=== PATIENT | female | born 1985 | race Caucasian/White ===

== ENCOUNTER 2020-05-26 19:28 | Emergency (ER) | payer SELFPAY ==
[~2020-05-26] VITALS: Ht 170.2 cm; Wt 52.2 kg
[2020-05-26 21:27] LABS: BASOPHILS ABSOLUTE AUTO 0.07 K/mm3 (0.00-0.23); BASOPHILS PERCENT AUTO 1 % (0-2); EOSINOPHILS ABSOLUTE AUTO 0.14 K/mm3 (0.00-0.68); EOSINOPHILS PERCENT AUTO 2 % (0-6); Hematocrit 37.7 % (33.0-51.0); Hemoglobin 12.6 g/dL (11.5-16.0); IMMATURE GRAN ABSOLUTE AUTO 0.02 K/mm3 (0.00-0.10); IMMATURE GRAN PERCENT AUTO 0 % (0-1); LYMPHOCYTES ABSOLUTE AUTO 1.93 K/mm3 (0.84-5.20); LYMPHOCYTES PERCENT AUTO 24 % (21-46); MONOCYTES ABSOLUTE AUTO 0.67 K/mm3 (0.16-1.47); MONOCYTES PERCENT AUTO 8 % (4-13); Mean Corpuscular HGB 31.8 pg (26.0-34.0); Mean Corpuscular HGB Conc 33.4 g/dL (31.5-36.5); Mean Corpuscular Volume 95 fL (80-100); Mean Platelet Volume 11.5 fL (9.1-12.4); NEUTROPHILS PERCENT AUTO 65 % (41-73); Platelet Count 222 K/mm3 (150-400); RDW Standard Deviation 42.4 fL (35.1-46.3); Red Blood Cell Count 3.96 M/mm3 (3.80-5.20); White Blood Cell Count 8.03 K/mm3 (4.00-11.30)
[2020-05-26 21:40] LABS: U Amphetamine Screen DETECTED; U Barbituate Screen Not Detected; U Benzodiazapine Screen Not Detected; U Buprenorphine Screen Not Detected; U Cannabinoids Screen DETECTED; U Cocaine Screen Not Detected; U Methadone Screen Not Detected; U Methamphetamine Screen DETECTED; U Opiates Screen Not Detected; U Oxycodone Screen Not Detected; U Phencyclidine Screen Not Detected; U Propoxyphene Screen Not Detected
[2020-05-26 21:48] LABS: Alanine Aminotransfer (ALT/SGP 30 U/L (12-78); Albumin, Blood 3.6 g/dL (3.4-5.0); Albumin/Globulin Ratio 1.1 (0.8-1.8); Alk Phos 55 U/L (50-136); Anion Gap 6 mmol/L (6-16); Aspartate Aminotrans (AST/SGOT 25 U/L (12-37); Bilirubin, Total 0.8 mg/dL (0.1-1.0); Blood Urea Nitrogen 19 mg/dL (8-24); Bun/Creatinine Ratio 22.5 (12.0-20.0); CO2, Blood 26 mmol/L (21-32); Calcium, Blood 8.8 mg/dL (8.5-10.1); Chloride, Blood 108 mmol/L (98-108); Creatinine, Blood 0.85 mg/dL (0.40-1.00); Ethanol (Alcohol), Blood, Med <3 mg/dL; Globulin, Blood 3.2 g/dL (2.2-4.0); Glomerular Filtration Rate >60 (60-); Glucose, Blood 109 mg/dL (70-99); Potassium, Blood 3.3 mmol/L (3.5-5.5); Salicylate 3.8 mg/dL (2.8-20.0); Sodium, Blood 140 mmol/L (136-145); Thyroxine (T4) 11.4 ug/dL (4.8-13.9); Total Protein, Blood 6.8 g/dL (6.4-8.2)
[2020-05-26 21:50] LABS: Acetaminophen, Random <2.0 ug/mL (10.0-30.0)
== END 2020-05-26 22:36 | disposition home or self-care (01) ==
LOC: ER 19:28
PROVIDERS: Emergency Medicine
DX: F15.10 Other stimulant abuse, uncomplicated (principal); R41.82 Altered mental status, unspecified
CPT/HCPCS: 80053; 81025; 84436; 84443; 85025; 93005; 93010; 99285-25; G0480

== ENCOUNTER 2021-05-10 13:53 | Inpatient (IN) | payer OTHER ==
[~2021-05-10] VITALS: Ht 175.3 cm; Wt 59.0 kg
[2021-05-10 14:51] LABS: Hematocrit 33.7 % (33.0-51.0); Hemoglobin 11.3 g/dL (11.5-16.0); Mean Corpuscular HGB 30.3 pg (26.0-34.0); Mean Corpuscular HGB Conc 33.5 g/dL (31.5-36.5); Mean Corpuscular Volume 90 fL (80-100); Mean Platelet Volume 11.5 fL (9.1-12.4); Platelet Count 297 K/mm3 (150-400); RDW Coefficient Variation 12.7 % (11.7-14.2); RDW Standard Deviation 41.5 fL (35.1-46.3); Red Blood Cell Count 3.73 M/mm3 (3.80-5.20)
[2021-05-10 14:53] LABS: White Blood Cell Count 15.87 K/mm3 (4.00-11.30)
[2021-05-10 15:13] LABS: BASOPHILS PERCENT MAN 0 % (0-2); EOSINOPHILS PERCENT MAN 0 % (0-6); LYMPHOCYTES ABSOLUTE MAN 0.95 K/mm3 (0.84-5.20); LYMPHOCYTES PERCENT MAN 6 % (21-46); MONOCYTES ABSOLUTE MAN 0.63 K/mm3 (0.16-1.47); MONOCYTES PERCENT MAN 4 % (4-13); NEUTROPHILS ABSOLUTE MAN 14.28 K/mm3 (1.96-9.15); SEG NEUTROPHILS PERCENT MAN 90 % (41-73); TOTAL CELLS COUNTED 100
[2021-05-10 15:48] LABS: SARS-Cov-2 (COVID-19) PCR, MMC NEGATIVE (NEGATIVE)
[2021-05-10 17:00] LABS: U Amphetamine Screen DETECTED; U Barbituate Screen Not Detected; U Benzodiazapine Screen Not Detected; U Buprenorphine Screen Not Detected; U Cannabinoids Screen DETECTED; U Cocaine Screen Not Detected; U Methadone Screen Not Detected; U Methamphetamine Screen DETECTED; U Opiates Screen Not Detected; U Oxycodone Screen Not Detected; U Phencyclidine Screen Not Detected; U Propoxyphene Screen Not Detected
[2021-05-10 17:49] LABS: PCO2 Cord - Venous 37.3 mmHg (40-50); PO2 Cord - Venous 25.1 mmHg (28-32); pH Umbilical Cord - Venous 7.34 (7.26-7.35)
--- NOTE | 2021-05-10 19:19 | NUR ---
[place] [employer] [place]. she does not have a phone, and no contacts. Pt states she has been in denial about this the whole time and just realized that she had a belly last month. and that she has not had her period since she slept with the dad of this baby. Pt states that she did not seek care because she was in denial this whole time and that she was "in a different era than she was with her first baby 9 years ago." Pt states that her son that is 9 years old lives with the dad and is either in [place] or local she isnt sure. This baby's dad is different and she states that she thinks that He is aware of the but is not positive. 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 Pt states that it is not hard for her to say no and be off of the meth even though she used it today and yesterday. pt states that she is aware of resources such as [facility] & [facility] and is happy about this baby and she believes that it will bring good to her life and help her get clean. Pt states that she has been depressed about a lot of things lately but is excited about her daughter.
--- NOTE | 2021-05-11 08:29 | NUR ---
UP TO SHOWER THIS AM. NOTED INCREASED SWELLING IN L LABIA. PT REPORTS LOTS OF PAIN ON L SIDE. DIFFICULT TO ASSESS, APPROXIMATION WITH STITCHES. ICE DIAPER PLACED WITH COMPRESSION FROM LARGE PAD AND UNDERWEAR. NOTED PT DID NOT ASK ABOUT HER BABY TODAY. VANESA HANDLEY HERE AND AWARE.
--- NOTE | 2021-05-11 08:30 | NUR ---
ICE APPLIED TO PERINEUM AFTER SHOWER, LEFT LABIA DECREASED SWELLING SIGNIFICANTLY. LOOKING MUCH BETTER THAN IT DID THIS MORNING WITH SHOWER. ENCOURAGED PT TO KEEP ICE ON WITH PAD CHANGES AND KEEP DIRECT WEIGHT OFF PERINEUM. PT LAYING ON SIDE. PT STATE SHE WILL LET US KNOW IF SWELLING INCREASES OR PAIN INCREASES.
[2021-05-11 09:50] LABS: BASOPHILS ABSOLUTE AUTO 0.05 K/mm3 (0.00-0.23); BASOPHILS PERCENT AUTO 0 % (0-2); EOSINOPHILS ABSOLUTE AUTO 0.09 K/mm3 (0.00-0.68); EOSINOPHILS PERCENT AUTO 1 % (0-6); Hematocrit 27.4 % (33.0-51.0); Hemoglobin 9.1 g/dL (11.5-16.0); IMMATURE GRAN ABSOLUTE AUTO 0.16 K/mm3 (0.00-0.10); IMMATURE GRAN PERCENT AUTO 1 % (0-1); LYMPHOCYTES ABSOLUTE AUTO 2.24 K/mm3 (0.84-5.20); LYMPHOCYTES PERCENT AUTO 15 % (21-46); MONOCYTES PERCENT AUTO 7 % (4-13); Mean Corpuscular HGB 30.1 pg (26.0-34.0); Mean Corpuscular HGB Conc 33.2 g/dL (31.5-36.5); Mean Corpuscular Volume 91 fL (80-100); Mean Platelet Volume 12.6 fL (9.1-12.4); NEUTROPHILS ABSOLUTE AUTO 10.96 K/mm3 (1.96-9.15); NEUTROPHILS PERCENT AUTO 76 % (41-73); Platelet Count 253 K/mm3 (150-400); RDW Coefficient Variation 12.8 % (11.7-14.2); RDW Standard Deviation 42.1 fL (35.1-46.3); Red Blood Cell Count 3.02 M/mm3 (3.80-5.20)
--- NOTE | 2021-05-11 10:11 | NUR ---
PT BEING VERY COMPLIANT AND HONEST WITH CPS.
--- NOTE | 2021-05-11 10:15 | NUR ---
WITH CPS PT STATES THAT SHE HAS NOTHING TO CARE FOR THIS BABY.
--- NOTE | 2021-05-11 11:17 | NUR ---
PT'S DAUGHTER WAS BROUGHT INTO HER ROOM TO EVALUATE HER PARENTING AND APPROPRIATE SAFETY WITH THE BABY. PT HELD THE BABY FOR A FEW MINUTES AND STARTED TO FALL ASLEEP WHILE HOLDING HER AND WAS MAKING TONGUE MOVEMENTS THAT PROTRUDED OUTSIDE HER MOUTH. SHE WAS REMINDED THAT WHEN SHE STARTS TO FEEL TIRED, SHE NEEDS TO PUT THE BABY IN THE CRIB AND THAT SHE SHOULD NOT FALL ASLEEP WITH THE BABY. SHIRA MUSA PUT BABY IN THE CRIB FOR HER.
--- NOTE | 2021-05-11 11:42 | NUR ---
back to desk with nursing staff per Heidy request. Heidy asked if we could take her back so she could sleep all she could. I told her that we needed to be able to see how she was able to parent this child so we could see if baby girl would be safe and cared for when she was with Heidy's supervision. Heidy still wanted this baby out with the staff after explaining why we wanted to see her parenting skills and would call when she wanted her back. she states that this is all crazy and shes still in somewhat of denial about it.
--- NOTE | 2021-05-11 12:56 | NUR ---
pt fast asleep after eating lunch. remains at desk being cared for by nursing staff
--- NOTE | 2021-05-11 15:10 | NUR ---
taken to room, mother notified she needs to eat at 4:30. asleep in crib 20 minutes after taken to room, mother did not pick her up and turned the lights off and has been asleep since.
--- NOTE | 2021-05-11 15:31 | NUR ---
Kath't into patient room at 1520 baby was laying in crib mom was standing next to crib beside the bed. I asked if i could get her anything patient stated ice diaper please
--- NOTE | 2021-05-11 16:07 | NUR ---
Kath't and check on patient at 1600 mom was sleepin in bed and baby was sleeping in crib with lights out
--- NOTE | 2021-05-11 17:00 | NUR ---
milind woke up and fed appropriately burped her and changed her diaper without being prompted.
--- NOTE | 2021-05-11 19:09 | NUR ---
late entry for 0700 today. This patient has slept all night, having to be awakened get up and empty bladder. Refused to shower tonight. When getting back to bed around 0100, pt asked "how's it doing'? Informed her that her daughter was in the nursery and doing well. At this she rolled over on her side and went back to sleep. Never asked if she could go and see her, Whe did not awaken during taking of VS or fundal massage.
--- NOTE | 2021-05-12 06:55 | NUR ---
ASSUMMED CARE OF BABY AND MOM THIS MORNING AT 0350. MOM WAS WOKEN AT 0430 TO FEED BABY. MOM CHECKED DIAPER AND GAVE BOTTLE. PT WAS APPROPRIATE WITH CARE. ROUNDED ON MOM AND BABY AND BOTH SLEEPING. BABY IN CRIB.
--- NOTE | 2021-05-12 07:35 | NUR ---
PATIENT STATES BABY WAS FUSSY AT 0700 ASK HER IF SHE FED BABY AND SHE SAID NO, NURSE STATED BABY IS HUNGRY AND NEEDS TO BE FED, PATIENT FED BABY AND APPEARED LOVINGAND APPROPRIATE
[2021-05-12 08:09] LABS: HBSAG SCREEN Negative (Negative)
[2021-05-12 08:09] LABS: HIV SCREEN 4TH GENERATION WRFX Non Reactive (Non Reactive)
--- NOTE | 2021-05-12 17:19 | NUR ---
d/c home with [facility]
[2021-05-13 05:10] LABS: CHLAMYDIA TRACHOMATIS, NAA Negative (Negative)
[2021-05-13 19:06] LABS: HCV LOG10 5.617 (.); HEPATITIS C QUANTITATION 414000 IU/mL (.)
== END 2021-05-12 17:32 | disposition home or self-care (01) | DRG 806 ==
LOC: ER 13:53 → BC 14:09 → ER 14:09 → BC 19:26
PROVIDERS: Advanced Practice Midwife; Specialist; ADMIT Family Medicine
PROC: 10E0XZZ Delivery of Products of Conception, External Approach (ICD-10-PCS; principal; 2021-05-10)
PROC: 0UQMXZZ Repair Vulva, External Approach (ICD-10-PCS; 2021-05-10)
DX: O42.02 Full-term premature rupture of membranes, onset of labor within 24 hours of rupture (principal); O99.324 Drug use complicating childbirth; Z37.0 Single live birth; Z3A.00 Weeks of gestation of pregnancy not specified; Z20.822 Contact with and (suspected) exposure to COVID-19; O73.0 Retained placenta without hemorrhage; O70.0 First degree perineal laceration during delivery; Z28.21 Immunization not carried out because of patient refusal; F12.10 Cannabis abuse, uncomplicated; O34.211 Maternal care for low transverse scar from previous cesarean delivery; F15.10 Other stimulant abuse, uncomplicated; Z59.00 Homelessness unspecified
CPT/HCPCS: 36415; 82803; 85025; 86317; 86592; 86762; 86850; 86900; 86901; 87340; 87389; 87491; 87522; 87591; 99284; A9270; J0290; J0690; J1885; J2060; J2210; J3010; J7120; U0004

== ENCOUNTER 2021-06-02 09:12 | Emergency (ER) | payer OTHER ==
[~2021-06-02] VITALS: Ht 175.3 cm; Wt 61.2 kg
[2021-06-02] MEDS ORDERED: Diflucan150 MG PO (09:31)
== END 2021-06-02 09:33 | disposition home or self-care (01) ==
LOC: ER 09:12
DX: B37.3 Candidiasis of vulva and vagina (principal); Z79.899 Other long term (current) drug therapy
CPT/HCPCS: 99282

== ENCOUNTER 2021-06-08 16:57 | Emergency (ER) | payer OTHER ==
[~2021-06-08] VITALS: Ht 172.7 cm; Wt 59.9 kg
[~2021-06-08 16:57] MED LIST: Diflucan150 MG PO
[2021-06-08 18:49] LABS: Source, Urine Clean Catch
[2021-06-08 18:56] LABS: Appearance, Urine Clear (Clear); Bilirubin, Urine Neg (Neg); Blood, Urine 2+ (Neg); Glucose Qualitative, Urine Neg (Neg); Ketones, Urine Neg (Neg); Leukocyte Esterase, Urine 3+ (Neg); Nitrite, Urine Neg (Neg); Protein, Urine Neg (Neg); Urobilinogen, Urine NORM (Normal)
[2021-06-08 19:05] LABS: Color, Urine Pale Yellow (P-Yellow)
[2021-06-08 19:06] LABS: White Blood Cells, Urine 50-100 /hpf (0-5)
[2021-06-08 19:07] LABS: Bacteria Many /hpf; Squamous Epithelial Cells Mod /hpf (Few)
[2021-06-08] MEDS ORDERED: SULTRIDS PO (20:17)
[2021-06-11 03:11] LABS: CHLAMYDIA TRACHOMATIS, NAA Negative (Negative)
== END 2021-06-08 20:55 | disposition home or self-care (01) ==
LOC: ER 16:57
PROVIDERS: Physician Assistant; Student in an Organized Health Care Education/Training Program
DX: O86.19 Other infection of genital tract following delivery (principal); O98.33 Other infections with a predominantly sexual mode of transmission complicating the puerperium; A59.01 Trichomonal vulvovaginitis; A59.09 Other urogenital trichomoniasis
CPT/HCPCS: 81001; 81025; 87086; 87491; 87591; 96372; 99284-25; A9270; J0696

== ENCOUNTER 2022-03-14 07:29 | Emergency (ER) | payer OTHER ==
[~2022-03-14] VITALS: Ht 172.7 cm; Wt 55.3 kg
[~2022-03-14 07:29] MED LIST changes: +SULTRIDS PO
[2022-03-14 08:33] LABS: Source, Urine Clean Catch
[2022-03-14 08:42] LABS: Blood, Urine 4+ (Neg); Glucose Qualitative, Urine Neg (Neg); Ketones, Urine 1+ (Neg); Leukocyte Esterase, Urine 1+ (Neg); Nitrite, Urine Pos (Neg); Protein, Urine 2+ (Neg); Specific Gravity, Urine 1.025 (1.003-1.022); Urobilinogen, Urine 2+ (Normal)
[2022-03-14] MEDS ORDERED: CEPH500 PO (08:45)
[2022-03-14 09:03] LABS: Bilirubin, Urine 2+ (Neg)
[2022-03-14 09:04] LABS: Appearance, Urine Cloudy (Clear); Color, Urine Amber (P-Yellow)
[2022-03-14 09:06] LABS: Amorphous Heavy (0-Heavy); Red Blood Cells, Urine 0-2 /hpf (0-2); Squamous Epithelial Cells Rare /hpf (Few); White Blood Cells, Urine 0-2 /hpf (0-5)
[2022-03-14 09:07] LABS: Bacteria Mod /hpf
== END 2022-03-14 09:10 | disposition home or self-care (01) ==
LOC: ER 07:29
PROVIDERS: Physician Assistant
DX: N39.0 Urinary tract infection, site not specified (principal); F17.210 Nicotine dependence, cigarettes, uncomplicated
CPT/HCPCS: 81001; 81025; 87077; 87086; 87186; J0696

== ENCOUNTER 2022-07-30 11:52 | Emergency (ER) | payer OTHER ==
[~2022-07-30] VITALS: Ht 172.7 cm; Wt 62.6 kg
[~2022-07-30 11:52] MED LIST changes: +CEPH500 PO
[2022-07-30] MEDS ORDERED: FLUC150A PO (12:49)
== END 2022-07-30 12:51 | disposition home or self-care (01) ==
LOC: ER 11:52
DX: B37.31 Acute candidiasis of vulva and vagina (principal); F17.210 Nicotine dependence, cigarettes, uncomplicated; Z79.899 Other long term (current) drug therapy
CPT/HCPCS: 99282

== ENCOUNTER → 2022-08-18 | Outpatient (CLI) | payer OTHER ==
[~2022-08-18] MED LIST changes: +FLUC150A PO
[2022-08-19 11:50] LABS: Candida species (DNA Probe) Negative (NEGATIVE); G. vaginalis (DNA Probe) Negative (NEGATIVE); T. vaginalis (DNA Probe) Positive (NEGATIVE)
[2022-08-20 05:10] LABS: CHLAMYDIA TRACHOMATIS, NAA Negative (Negative)
== END ==
LOC: LAB SHORT 15:20 → LAB 15:20
PROVIDERS: Physician Assistant Surgical
DX: N76.0 Acute vaginitis (principal)
CPT/HCPCS: 87480; 87491; 87510; 87591; 87660

== ENCOUNTER 2023-02-21 20:18 | Emergency (ER) | payer OTHER ==
[~2023-02-21] VITALS: Ht 172.7 cm; Wt 58.1 kg
[~2023-02-21 20:18] MED LIST changes: +Bactrim Ds Tab1 EACH PO; +Valtrex1000 MG PO
[2023-02-21 20:30] VITALS: BP 117/79
[2023-02-21 20:52] LABS: Source, Urine Clean Catch
[2023-02-21 20:54] LABS: Blood, Urine 5+ (Neg); Glucose Qualitative, Urine Neg (Neg); Ketones, Urine 1+ (Neg); Leukocyte Esterase, Urine 2+ (Neg); Nitrite, Urine Pos (Neg); Protein, Urine 2+ (Neg); Specific Gravity, Urine 1.025 (1.003-1.022); Urobilinogen, Urine 1+ (Normal)
[2023-02-21 21:01] LABS: Appearance, Urine Hazy (Clear); Bilirubin, Urine 1+ (Neg); Color, Urine Amber (P-Yellow)
[2023-02-21 21:03] LABS: Amorphous Light (0-Heavy); Bacteria Many /hpf; Mucus Mod (0-Heavy); Red Blood Cells, Urine 50-100 /hpf (0-2); Squamous Epithelial Cells Few /hpf (Few)
[2023-02-21] MEDS ORDERED: NITR100CA PO (21:49)
[2023-02-21 22:08] LABS: Candida species (DNA Probe) Negative (NEGATIVE); G. vaginalis (DNA Probe) Positive (NEGATIVE); T. vaginalis (DNA Probe) Negative (NEGATIVE)
== END 2023-02-21 22:01 | disposition home or self-care (01) ==
LOC: ER 20:18
PROVIDERS: Student in an Organized Health Care Education/Training Program
DX: N39.0 Urinary tract infection, site not specified (principal); N89.8 Other specified noninflammatory disorders of vagina; F17.210 Nicotine dependence, cigarettes, uncomplicated; F15.11 Other stimulant abuse, in remission
CPT/HCPCS: 81001; 87077; 87086; 87186; 87480; 87510; 87660; 99283; A9270

== ENCOUNTER 2023-03-26 17:26 | Emergency (ER) | payer OTHER ==
[~2023-03-26] VITALS: Ht 175.3 cm; Wt 55.3 kg
[~2023-03-26 17:26] MED LIST changes: +NITR100CA PO
[2023-03-26 17:37] VITALS: BP 128/82
== END 2023-03-26 19:17 | disposition home or self-care (01) ==
LOC: ER 17:26
DX: B35.1 Tinea unguium (principal); F17.210 Nicotine dependence, cigarettes, uncomplicated; W22.8XXA Striking against or struck by other objects, initial encounter
CPT/HCPCS: 73660; 99283-25

== ENCOUNTER 2023-04-03 20:23 | Emergency (ER) | payer OTHER ==
[~2023-04-03] VITALS: Ht 172.7 cm; Wt 56.0 kg
[2023-04-03 20:48] VITALS: BP 159/98
[2023-04-03] MEDS ORDERED: CEPH500 PO (20:57)
== END 2023-04-03 21:05 | disposition home or self-care (01) ==
LOC: ER 20:23
DX: S91.102A Unspecified open wound of left great toe without damage to nail, initial encounter (principal); L08.9 Local infection of the skin and subcutaneous tissue, unspecified; F17.210 Nicotine dependence, cigarettes, uncomplicated; X08.8XXA Exposure to other specified smoke, fire and flames, initial encounter
CPT/HCPCS: 99283

== ENCOUNTER → 2023-04-05 | Outpatient (CLI) | payer OTHER ==
[2023-04-06 14:09] LABS: Candida species (DNA Probe) Negative (NEGATIVE); G. vaginalis (DNA Probe) Positive (NEGATIVE); T. vaginalis (DNA Probe) Negative (NEGATIVE)
== END ==
LOC: LAB SHORT 16:15 → LAB 16:15
PROVIDERS: Nurse Practitioner
DX: R82.90 Unspecified abnormal findings in urine (principal); N89.8 Other specified noninflammatory disorders of vagina; L02.511 Cutaneous abscess of right hand
CPT/HCPCS: 87070; 87075; 87077; 87086; 87147; 87186; 87205; 87480; 87510; 87660

== ENCOUNTER 2024-05-29 09:59 | Emergency (ER) | payer OTHER ==
[~2024-05-29] VITALS: Ht 172.7 cm; Wt 58.1 kg
[2024-05-29 10:17] VITALS: BP 124/81
[2024-05-29] MEDS ORDERED: Penicillin G Benzathine 1.2 MMU / 2 ML SYR IM ONE (11:10)
== END 2024-05-30 12:11 | disposition home or self-care (01) ==
LOC: ER 09:59
DX: Z02.89 Encounter for other administrative examinations (principal); F17.210 Nicotine dependence, cigarettes, uncomplicated
CPT/HCPCS: 96372; 99282-25; J0561

== ENCOUNTER 2024-11-03 18:23 | Emergency (ER) | payer OTHER ==
[~2024-11-03] VITALS: Ht 172.7 cm; Wt 55.8 kg
[2024-11-03 18:38] VITALS: BP 137/94
== END 2024-11-03 20:56 | disposition home or self-care (01) ==
LOC: ER 18:23
DX: S50.862A Insect bite (nonvenomous) of left forearm, initial encounter (principal); Z79.2 Long term (current) use of antibiotics; F17.210 Nicotine dependence, cigarettes, uncomplicated; W57.XXXA Bitten or stung by nonvenomous insect and other nonvenomous arthropods, initial encounter
CPT/HCPCS: 99282